=== PATIENT | male | born 1960 | race African-American/Black ===

== ENCOUNTER 2020-08-04 06:53 | Observation (INO) | payer OTHER ==
[~2020-08-04] VITALS: Ht 165.1 cm; Wt 85.1 kg
[~2020-08-04 06:53] MED LIST: ADALAT CC30 MG OR; ADULT ASA81 MG OR; ALTOPREV20 MG OR; CIPROFLOXACN500 MG PO; DILAUDID 2MG2 MG/TA1 PO; FLOMAX0.4 M1 PO; LIPITOR10 M1 PO; LIPITOR10 MG PO; LISINOPRIL20 MG PO; LOPRESSOR50 MG OR; METHOCARBAM750 MG OR; NAPROSYN500 MG OR; NITRO-DUR0.4 MG/HR TD; PLAVIX75 MG PO; ULTRAM50 MG OR; ZANTAC 150 PO
--- NOTE | 2020-08-04 07:10 | NUR ---
RECIEVED FOR CARE. HARD COPY RESULT FOR COVID RESULTS POSITIVE. MONITORING COMMENCED. COMFORT MEASURES. ISOLATION COMMENCED.
[2020-08-04 07:47] LABS: HEMATOCRIT 36.4 % (39.0-50.0); HEMOGLOBIN 11.3 g/dl (14.0-18.0); IMMATURE GRANULOCYTES 0.4 % (0.0-5.0); MEAN CELL VOLUME 67.8 fL CALC (80.0-100.0); NEUT# 3.69 thou/uL (1.82-7.42); RED BLOOD COUNT 5.37 mill/uL (4.70-6.10); RED CELL DISTRI WIDTH 16.1 % (11.5-15.5)
[2020-08-04 08:00] LABS: ALKALINE PHOSPHATASE 43 u/l (38-126); ANION GAP 14 (6-22 (CALC)); BUN 16 mg/dL (9-20); BUN/CREATININE RATIO 11 (12-20 (CALC)); CARBON DIOXIDE 24 mmol/l (22-30); CHLORIDE 104 mmol/l (95-108); CREATININE 1.5 mg/dL (0.7-1.3); GFR 48 ML/MIN (>=60 (CALC)); GFR FOR AFR.AMER. 58 ML/MIN (>=60 (CALC)); POTASSIUM 4.1 mmol/l (3.5-5.1); SODIUM 137 mmol/l (137-146); TOTAL PROTEIN 7.9 g/dL (6.3-8.2)
[2020-08-04 08:02] LABS: URINE BILIRUBIN - DIPSTICK NEGATIVE (NEGATIVE); URINE BLOOD DIPSTICK SMALL (NEGATIVE); URINE COLOR YELLOW; URINE GLUCOSE - DIPSTICK NEGATIVE (NEGATIVE); URINE KETONE NEGATIVE (NEGATIVE); URINE LEUK ESTERASE TRACE (NEGATIVE); URINE PROTEIN - DIPSTICK 30 mg/dL (NEG-TRACE)
[2020-08-04 08:05] LABS: BILIRUBIN, TOTAL 0.7 mg/dL (0.0-1.4); SGOT/AST 64 u/l (17-59)
[2020-08-04 08:12] LABS: MYOGLOBIN 160 ng/mL (0 - 121)
[2020-08-04 08:14] LABS: URINE EPITHELIAL CELLS MANY EPI/hpf (0-FEW); URINE NITRITE - DIPSTICK POSITIVE (Negative)
[2020-08-04 08:15] LABS: URINE BACTERIA MANY hpf
[2020-08-04] MEDS ORDERED: AMLODIPINE BESY10 MG PO (08:54)
[2020-08-04] MEDS ORDERED: METOPROL TAR25 MG PO (08:56)
--- NOTE | 2020-08-04 09:02 | NUR ---
PATIENT COMFORTABLE.RESTING [place]ING TV.
[2020-08-04] MEDS ORDERED: FENOFIBRATE145 MG PO (09:09)
[2020-08-04] MEDS ORDERED: ADVAIR DISK1 INH (09:09)
[2020-08-04] MEDS ORDERED: BRILINTA90 MG PO (09:10)
[2020-08-04] MEDS ORDERED: GABAPENTIN100 MG PO ×2 (09:12→09:15)
--- NOTE | 2020-08-04 09:25 | NUR ---
MD AT BEDSIDE TO DISCUSS RESULTS AND POC.
--- NOTE | 2020-08-04 09:41 | NUR ---
Patient changed to a nasal cannula. Patient positioned . CALL CARABALLO IN REACH
--- NOTE | 2020-08-04 10:40 | NUR ---
patient watching tv, requesting food. Tray ordered.
--- NOTE | 2020-08-04 12:05 | NUR ---
DR LINARES TO SEE PATIENT.
--- NOTE | 2020-08-04 12:22 | NUR ---
REPORT CALLED TO AUTUMN CRAIG RN IN SBAR FORMAT. PATIENT PREPARED FOR TRANSFER.
--- NOTE | 2020-08-04 12:40 | NUR ---
PT ARRIVED TO UNIT VIA STRETCER WITH ER STAFF AND 1 GUARD; ALERT AND ORIENTED. STOOD AND AMBULATED TO BED WITH STEADY GAIT. PLACED ON AIRBORNE/CONTACT PRECAUTIONS FOR RULE OUT COVID. DENIES PAIN CURRENLTY. RESPIRATIONS SLIGHTLY LABORED WITH EXERTION ON OXYGEN 2L VIA NC. ORIENTED TO ROOM AND CALL LIGHT SYSTEM. PLAN OF CARE DISCUSSED. PT ENCOURAGED TO VEBRALIZE CONCERNS. SAFETY MEASURES IN PLACE. CURRENTLY RESTING IN BED ON LEFT SIDE WITH RIGHT ANKLE SHACKLED TO BED. CALL LIGHT WITHIN REACH AND GUARD OUTSIDE DOOR IN HALLWAY DUE TO COVID PRECAUTIONS.
--- NOTE | 2020-08-04 12:50 | NUR ---
Admission Note Report Given to: Griselda Cobianden Transported by: Wheelchair y Stretcher Transported with: Nurse Transporter Patent IV O2 Debate Director Location: ICU yes MS2
[2020-08-04 12:55] VITALS: BP 155/89
[2020-08-04 14:45] VITALS: BP 160/70
[2020-08-04 19:00] VITALS: BP 142/74
--- NOTE | 2020-08-04 23:00 | NUR ---
PT IN SITTING ON SIDE OF BED; A/O X3; NO COMPLAINTS OR CONCERNS VOICED AT THIS TIME; O2 5L VIA NC; LUNGS DIMINISHED THROUGHOUT; ENCOURAGE PT TO DEEP BREATH AND COUGH; TELE MONITOR IN PLACE; LT ANKLE SHACKLED TO BED; GUARD X1 OUTSIDE OF ROOM; ENCOURAGE USE OF CALL LIGHT IF ANY ASSISTANCE IS NEEDED; WILL CONTINUE TO MONITOR.
[2020-08-05] VITALS: BP 132/80
--- NOTE | 2020-08-05 00:14 | NUR ---
BENEFITS COUNSELOR IN ROOM TO DRAW TROP.
--- NOTE | 2020-08-05 01:09 | NUR ---
PT IN SEMI VERA POSITION WATCHING TV; NO COMPLAINTS OR CONCERNS VOICED; CALL CARABALLO WITHIN REACH; WILL CONTINUE TO MONITOR.
--- NOTE | 2020-08-05 03:49 | NUR ---
PT IN SUPINE POSITION RESTING WITH EYES CLOSED; NO S/SX OF DISTRESS NOTED; CALL CARABALLO WITHIN REACH; WILL CONTINUE TO MONITOR.
[2020-08-05 04:00] VITALS: BP 144/89
--- NOTE | 2020-08-05 04:39 | NUR ---
PT AMBULATED TO BATHROOM WITHOUT OXYGEN; BECAME SOB AND C/O NAUSEA. OXYGEN REAPPLIED AND BREATHING TECHIQUES ENCOURAGED; SPO2 88% ON 4L VIA NC. SITTING UP ON EDGE OF BED. LAB AT BEDSIDE; GUARD AT BEDSIDE. PT IS RECOVERING AND REPORTS THAT NAUSEA HAS SUBSIDED. SPO2 INCREASED TO GREATER THAN 90%; WILL CONNECT EXTENSION TUBING FOR BATHROOM. PT REMAINS ON AIRBORNE/CONTACT PRECAUTIONS FOR POSITIVE COVID. CALL LIGHT WITHIN REACH.
[2020-08-05 05:48] LABS: HEMATOCRIT 39.4 % (39.0-50.0); IMMATURE GRANULOCYTES 0.5 % (0.0-5.0); MEAN CELL VOLUME 67.9 fL CALC (80.0-100.0); MEAN CORPUSCULAR HGB 20.7 pG CALC (26.0-32.0); MEAN CORPUSCULAR HGB CONC 30.5 g/dL CAL (32.0-36.0); NEUT# 2.53 thou/uL (1.82-7.42); RED BLOOD COUNT 5.8 mill/uL (4.70-6.10); RED CELL DISTRI WIDTH 16.3 % (11.5-15.5)
[2020-08-05 06:10] LABS: ALBUMIN 3.7 g/dL (3.2-5.0); ALKALINE PHOSPHATASE 47 u/l (38-126); ANION GAP 14 (6-22 (CALC)); BILIRUBIN, TOTAL 0.8 mg/dL (0.0-1.4); BUN 16 mg/dL (9-20); BUN/CREATININE RATIO 13 (12-20 (CALC)); CARBON DIOXIDE 24 mmol/l (22-30); CHLORIDE 107 mmol/l (95-108); CREATININE 1.3 mg/dL (0.7-1.3); GFR 56 ML/MIN (>=60 (CALC)); GFR FOR AFR.AMER. > 60 ML/MIN (>=60 (CALC)); POTASSIUM 4.7 mmol/l (3.5-5.1); SGOT/AST 91 u/l (17-59); SODIUM 140 mmol/l (137-146); TOTAL PROTEIN 7.4 g/dL (6.3-8.2)
[2020-08-05 06:13] LABS: CHOLESTEROL HDL RATIO 4.2 (<4.4 (CALC)); MAGNESIUM 2.7 mg/dL (1.6-2.3)
--- NOTE | 2020-08-05 07:18 | NUR ---
PT note Patient is screened fro PT intervention and no needs are identified at this time
[2020-08-05 08:10] VITALS: BP 137/88
--- NOTE | 2020-08-05 11:45 | NUR ---
REMDESIVIR COMPLETED. EMS IV SITE REMOVED.
[2020-08-05 15:00] VITALS: BP 120/73
--- NOTE | 2020-08-05 17:15 | NUR ---
TELEMETRY ORDER DISCONTINUED AND TELE REMOVED FROM PATIENT.
--- NOTE | 2020-08-05 18:15 | NUR ---
INCENTIVE SPIROMETER PROVIDED; PT GIVEN VERBAL EDUCATION AND INSTRUCTION. SPO2 92% ON 4L NC WHILE PERFORMING RETURN DEMONSTRATION. INSPIRATORY VOLUME ALMOST TO 1000. PT UP TO CHAIR FOR DINNER. RESPIRATIONS EVEN AND UNLABORED. CALL LIGHT WITHIN REACH.
[2020-08-05 20:00] VITALS: BP 119/78
--- NOTE | 2020-08-05 20:00 | NUR ---
RECEIVED REPORT NURSE AUTUMN, PATIENT ALERT ORIENTED, ABLE TO MAKE NEEDS KNONW, WITH SALINE LOCK ON RAC PATENT FLUSHES WELL, REMAINS ON O2 @ 4LPM VIA NC, BREATHING UNLABORED, STATED BREATHING BETTER AND HAS BEEN MOVING MORE, ACTIVE BOWEL SOUNDS ON ALL QUADRANTS DENIES PAIN, PATIENT SHACKLED TO BED, GUARD PRESENT CALL LIGHT AT REACH.
[2020-08-06] VITALS: BP 115/71
--- NOTE | 2020-08-06 | NUR ---
PATIENT SITTING IN RECLINER, REMAINS ON O2 @ 4LPM VIA NC, NOT IN DISTRESS CURRENTLY WATCHING TV, CALL LIGHT AT REACH.
--- NOTE | 2020-08-06 03:50 | NUR ---
PATIENT RESTING IN RECLINER, REMAINS ON O2 @ 4LPM VIA NC NOT IN DISTRESS, CALL LIGHT AT REACH.
[2020-08-06 04:00] VITALS: BP 108/66
[2020-08-06 05:43] LABS: HEMATOCRIT 35.2 % (39.0-50.0); HEMOGLOBIN 11.1 g/dl (14.0-18.0); IMMATURE GRANULOCYTES 0.8 % (0.0-5.0); MEAN CELL VOLUME 66.7 fL CALC (80.0-100.0); MEAN CORPUSCULAR HGB CONC 31.5 g/dL CAL (32.0-36.0); NEUT# 2.94 thou/uL (1.82-7.42); RED BLOOD COUNT 5.28 mill/uL (4.70-6.10); RED CELL DISTRI WIDTH 16.5 % (11.5-15.5)
[2020-08-06 05:57] LABS: ALBUMIN 3.3 g/dL (3.2-5.0); ALKALINE PHOSPHATASE 56 u/l (38-126); ANION GAP 12 (6-22 (CALC)); BUN 24 mg/dL (9-20); BUN/CREATININE RATIO 17 (12-20 (CALC)); CARBON DIOXIDE 24 mmol/l (22-30); CHLORIDE 108 mmol/l (95-108); CREATININE 1.4 mg/dL (0.7-1.3); GFR 52 ML/MIN (>=60 (CALC)); GFR FOR AFR.AMER. > 60 ML/MIN (>=60 (CALC)); POTASSIUM 4.6 mmol/l (3.5-5.1); SGOT/AST 136 u/l (17-59); SODIUM 139 mmol/l (137-146); TOTAL PROTEIN 6.5 g/dL (6.3-8.2)
[2020-08-06 06:05] LABS: BILIRUBIN, TOTAL 0.4 mg/dL (0.0-1.4)
[2020-08-06 09:44] VITALS: BP 148/90
--- NOTE | 2020-08-06 09:44 | NUR ---
PT FOUND AMBULATING ROOM WITH NO O2 IN PLACE. A&O X3. NO DISTRESS NOTED. O2 92-93%. IS DEVICE AT BEDSIDE, PT DEMONSTRATES PROPER USE OF DEVICE. O2 LEFT AT BEDSIDE IF NEEDED. NO OTHER NEEDS AT THIS TIME. ASSESSMENT COMPLETED. DISCUSSED POC. CALL LIGHT IN REACH. CONTINUE TO MONITOR.
[2020-08-06 11:38] VITALS: BP 120/72
--- NOTE | 2020-08-06 13:55 | NUR ---
PT AMBULATING IN ROOM. NO NEEDS AT THIS TIME. CALL LIGHT IN REACH. CONTINUE TO MONITOR.
--- NOTE | 2020-08-06 14:44 | NUR ---
PT SITTING IN THE CHAIR. NO NEEDS AT THIS TIME. CALL LIGHT IN REACH. CONTINUE TO MONITOR.
[2020-08-06 15:20] VITALS: BP 117/76
[2020-08-06 19:00] VITALS: BP 133/66
--- NOTE | 2020-08-06 19:50 | NUR ---
ASSESSMENT COMPLETED. NO DISTRESS NOTED; SITTING UP IN CHAIR WITH SHACKLE NOTED TO RIGHT ANKLE AND GURAD X1 AT BEDSIDE. PT. ON RA AND NO RESP. DISTRESS NOTED. ENCOURAGED USE OF I/S. PO FLUIDS PROVIDED PER REQUEST. ENCOURAGED TO CALL FOR ANY NEEDS. CALL LIGHT IS IN REACH. WILL CONTINUE TO MONITOR.
--- NOTE | 2020-08-06 23:35 | NUR ---
RESTING IN BED ON LEFT SIDE WITH NO DISTRESS NOTED; DENIES NEEDS/PAIN. OFFERED PO FLUIDS. CALL LIGHT IS IN REACH.
--- NOTE | 2020-08-07 01:40 | NUR ---
RESTING IN BED ON LEFT SIDE WITH EYES CLOSED.
--- NOTE | 2020-08-07 01:54 | NUR ---
UPDATED NURSE AT [facility] ON PT'S POC.
[2020-08-07 04:00] VITALS: BP 152/91
--- NOTE | 2020-08-07 06:22 | NUR ---
RESTING IN BED WITH EYES CLOSED; RESP. EVEN AND UNLABORED. CALL LIGHT IS IN REACH.
[2020-08-07 07:35] VITALS: BP 140/69
--- NOTE | 2020-08-07 07:35 | NUR ---
PT SITTING IN CHAIR. X1 GUARD IN ROOM. A&O X3. NO DISTRESS NOTED. PT FOUND TO BE WEARING O2 @3L, STATES HE WAS FEELING SOME SOB. IS DEVICE AT BEDSIDE. PT DEMONSTRATING PROPER USE OF DEVICE. NO OTHER NEEDS AT THIS TIME, ASSESSMENT COMPLETED. DISCUSSED POC. CALL LIGHT IN REACH. CONTINUE TO MONITOR.
[2020-08-07 08:18] VITALS: BP 140/69
[2020-08-07] MEDS ORDERED: Levaquin PO (11:18)
[2020-08-07] MEDS ORDERED: DEXAMETHASON6 MG PO (11:18)
[2020-08-07] MEDS ORDERED: ZITHROMAX500 MG PO (12:01)
[2020-08-07] MEDS ORDERED: ROCEPHIN 1 GM1 GM IV (12:01)
--- NOTE | 2020-08-07 13:43 | NUR ---
REPORT GIVEN TO ERIN PEREZ. AT [facility]. IV #20 RAC KEPT PER Casie SMITH APRN RECOMMENDATION AND PER FACILITY MEDICAL. Discharge instructions given. Patient verbalizes understanding of same. Discharged in stable condition via wheelchair to [facility] with staff. All belongings sent with pt. prescriptions given to guard.
== END 2020-08-07 13:31 | disposition designated cancer center or children's hospital (05) | DRG 177 ==
LOC: ED 06:53 → ED-I 09:25 → ED 09:26 → ED-I 09:26 → MS2 12:54
PROVIDERS: Emergency Medicine; Nurse Practitioner Family; ADMIT Internal Medicine; ATTEND Internal Medicine
PROC: XW033E5 Introduction of Remdesivir Anti-infective into Peripheral Vein, Percutaneous Approach, New Technology Group 5 (ICD-10-PCS; principal; 2020-08-05)
DX: U07.1 COVID-19 (principal); J96.00 Acute respiratory failure, unspecified whether with hypoxia or hypercapnia; N39.0 Urinary tract infection, site not specified; R50.9 Fever, unspecified; R07.2 Precordial pain; R52 Pain, unspecified; R53.1 Weakness; I10 Essential (primary) hypertension; I25.10 Atherosclerotic heart disease of native coronary artery without angina pectoris; G62.9 Polyneuropathy, unspecified; N40.0 Benign prostatic hyperplasia without lower urinary tract symptoms; B96.20 Unspecified Escherichia coli [E. coli] as the cause of diseases classified elsewhere; Z95.5 Presence of coronary angioplasty implant and graft
CPT/HCPCS: G0378; J1650